=== PATIENT | female | born 1935 | race Caucasian/White ===

== ENCOUNTER 2019-07-16 07:31 | Day surgery (SDC) | payer MEDICARE, OTHER ==
[2019-07-16] MEDS: TETRACAINE HCL 0.5% OPH SOLN 0.6 ML DROPERETTE OD PRN ×3 (07:12→07:40)
[2019-07-16] MEDS: CYCLOPENTOLATE 0.2%/PHENYLEPHRINE 1% OPH SOLN 2 ML OD PRN ×3 (07:12→07:37)
[2019-07-16] MEDS: TROPICAMIDE 1% OPH SOLN 15 ML OD PRN ×3 (07:12→07:37)
[2019-07-16] MEDS: TETRACAINE HCL 0.5% OPH SOLN 4 ML OD PRN ×2 (07:12→07:38)
[2019-07-16] MEDS: BESIFLOXACIN HCL 0.6% OPH SUSP 5 ML BOTTLE OD PRN ×4 (07:12→08:24)
[~2019-07-16 07:31] MED LIST changes: -BESIFLOXACIN HCL 0.6% OPH SUSP 5 ML BOTTLE OD PRN; -CHONDR SU A NA/HYALUR INTRAOC KIT (SURGICARE) ONE; -CYCLOPENTOLATE 0.2%/PHENYLEPHRINE 1% OPH SOLN 2 ML OD PRN; -DORZOLAMIDE HCL 2%/TIMOLOL MALEAT 0.5% OPH SOLN 10 ML OD PRN; -EPINEPHRINE INJ/PF 1 MG/1 ML AMPULE ONE; -LIDOCAINE 1% INJ-PF (10 MG/ML) 30 ML SDV ONE; -TETRACAINE HCL 0.5% OPH SOLN 4 ML OD PRN; -TROPICAMIDE 1% OPH SOLN 15 ML OD PRN
[2019-07-16] MEDS ORDERED: MIDAZOLAM 2 MG/2 ML INJ ONE (07:36)
[2019-07-16] MEDS ORDERED: FENTANYL CITRATE INJ/PF 100 MCG/2 ML AMPUL ONE (07:36)
[2019-07-16] MEDS: LIDOCAINE 1% INJ-PF (10 MG/ML) 30 ML SDV ONE ×2 (08:08)
[2019-07-16] MEDS: EPINEPHRINE INJ/PF 1 MG/1 ML AMPULE ONE ×2 (08:08)
[2019-07-16] MEDS: CHONDR SU A NA/HYALUR INTRAOC KIT (SURGICARE) ONE ×2 (08:08)
[2019-07-16] MEDS: DORZOLAMIDE HCL 2%/TIMOLOL MALEAT 0.5% OPH SOLN 10 ML OD PRN ×2 (08:24)
== END 2019-07-16 09:08 | disposition home or self-care (01) ==
LOC: SC 07:31
PROVIDERS: ATTEND Ophthalmology
DX: H25.813 Combined forms of age-related cataract, bilateral (principal); I10 Essential (primary) hypertension; E78.00 Pure hypercholesterolemia, unspecified; Z79.899 Other long term (current) drug therapy; H04.123 Dry eye syndrome of bilateral lacrimal glands; H02.831 Dermatochalasis of right upper eyelid; H02.834 Dermatochalasis of left upper eyelid; Z79.82 Long term (current) use of aspirin
CPT/HCPCS: 66984; V2632; J2250; J3490 ×2; J0171; J3010

== ENCOUNTER → 2019-07-16 | Day surgery (SDC) | payer MEDICARE, OTHER ==
[~2019-07-16] MED LIST: BESIFLOXACIN HCL 0.6% OPH SUSP 5 ML BOTTLE OD PRN; BUPIVACAINE HCL 0.75% INJ/PF (7.5 MG/1 ML) 10 ML SDV OD PRN; CHONDR SU A NA/HYALUR INTRAOC KIT (SURGICARE) ONE; CYCLOPENTOLATE 0.2%/PHENYLEPHRINE 1% OPH SOLN 2 ML OD PRN; DORZOLAMIDE HCL 2%/TIMOLOL MALEAT 0.5% OPH SOLN 10 ML OD PRN; EPINEPHRINE INJ/PF 1 MG/1 ML AMPULE ONE; KETOROLAC TROMETHAMINE 0.45% 4 DROP/0.4 ML DROPERETTE OD PRN; LIDOCAINE 1% INJ-PF (10 MG/ML) 30 ML SDV ONE; LIDOCAINE 4% INJ/PF (40 MG/ML) 5 ML AMPUL OD PRN; TETRACAINE HCL 0.5% OPH SOLN 4 ML OD PRN; TROPICAMIDE 1% OPH SOLN 15 ML OD PRN
--- NOTE | 2019-07-16 12:39 | Operative Report ---
Operative Report-[facility] Operative Report: DATE OF SURGERY: 07/16/2019 PREOPERATIVE DIAGNOSIS: CATARACT, RIGHT EYE. POSTOPERATIVE DIAGNOSIS: CATARACT, RIGHT EYE. PROCEDURE PERFORMED: PHACOEMULSIFICATION WITH POSTERIOR CHAMBER INTRAOCULAR LENS, RIGHT EYE. Intraocular Lens Model : MX60E 24.0 Total Phaco Time: 5.98 CDE SURGEON: JACKY CURRY MD ANESTHESIA: TOPICAL WITH MAC. INDICATIONS FOR SURGERY: Difficulty watching TV and driving. PROCEDURE: The patient was brought to the Operating Room and placed on the operative table. Following tetracaine drops, topical anesthesia was administered. This consisted of instrument wipe pledgets soaked in a solution of 4% Xylocaine mixed with 0.75% Marcaine in a 1:2 ratio. A 2 x 1 cm pledget was placed in the superior fornix. A 1 x 1 cm pledget was placed in the inferior fornix. The eye was patched shut for 5 minutes. The patch was removed. The eye was sterilely prepped and draped in the usual manner. Lid speculum was placed in the eye. The pledgets were removed. 4-0 black silk sutures were placed around the superior and the inferior rectus muscles to be used as traction. A conjunctival peritomy was made at the 10 o'clock position. Hemostasis was obtained with bipolar cautery. A posterior limbal groove was created using a crescent knife and dissected anteriorly towards the cornea. A sharp point blade was used to create a paracentesis site at the 2 o'clock position. 0.2 cc non preserved Lidocaine was injected into the anterior chamber. A 2.4 mm keratome was used to enter the anterior chamber through the groove. Viscoelastic was injected into the anterior chamber. An anterior capsulotomy was performed using Utrata forceps in a capsulorrhexis fashion. Hydrodissection and hydrodelineation were performed. Phacoemulsification was performed in [id number] technique. Following this, the I/A unit was used to remove residual cortex. Viscoelastic was injected into the capsular bag. The Intraocular lens was placed in the capsular bag. The I/A unit was used to remove residual viscoelastic. The wound was seen to be watertight under high and low pressure, and no sutures were place d. The intraocular lens was well centered. The pressure was adjusted in the eye to normal pressure. The 4-0 black silk sutures and lid speculum were removed. The eye was shielded after Besivance and Cosopt drops were placed. The patient tolerated the procedure well and was sent to the Recovery Room in good condition.
== END ==
LOC: SC 06:54
PROVIDERS: ATTEND Ophthalmology
DX: H25.811 Combined forms of age-related cataract, right eye (principal)
CPT/HCPCS: 00142; A9270; 142; J0171; J2250; J3010; J3490; V2632

== ENCOUNTER 2019-08-13 07:57 | Day surgery (SDC) | payer MEDICARE ==
[~2019-08-13 07:57] MED LIST changes: -BUPIVACAINE HCL 0.75% INJ/PF (7.5 MG/1 ML) 10 ML SDV OD PRN; +BUPIVACAINE HCL 0.75% INJ/PF (7.5 MG/1 ML) 10 ML SDV OS PRN; +CHONDR SU A NA/HYALUR INTRAOC KIT (SURGICARE) ONE; +DORZOLAMIDE HCL 2%/TIMOLOL MALEAT 0.5% OPH SOLN 10 ML OS PRN; +EPINEPHRINE INJ/PF 1 MG/1 ML AMPULE ONE; -KETOROLAC TROMETHAMINE 0.45% 4 DROP/0.4 ML DROPERETTE OD PRN; +KETOROLAC TROMETHAMINE 0.45% 4 DROP/0.4 ML DROPERETTE OS PRN; +LIDOCAINE 1% INJ-PF (10 MG/ML) 30 ML SDV ONE; -LIDOCAINE 4% INJ/PF (40 MG/ML) 5 ML AMPUL OD PRN; +LIDOCAINE 4% INJ/PF (40 MG/ML) 5 ML AMPUL OS PRN
[2019-08-13] MEDS: BESIFLOXACIN HCL 0.6% OPH SUSP 5 ML BOTTLE OS PRN ×3 (08:57→10:01)
[2019-08-13] MEDS: TROPICAMIDE 1% OPH SOLN 15 ML OS PRN ×3 (08:57→09:17)
[2019-08-13] MEDS: CYCLOPENTOLATE 0.2%/PHENYLEPHRINE 1% OPH SOLN 2 ML OS PRN ×3 (08:57→09:17)
[2019-08-13] MEDS: TETRACAINE HCL 0.5% OPH SOLN 4 ML OS PRN ×3 (08:58→09:36)
[2019-08-13] MEDS ORDERED: MIDAZOLAM 2 MG/2 ML INJ ONE ×2 (09:16→09:49)
--- NOTE | 2019-08-13 12:34 | Operative Report ---
Operative Report-[facility] Operative Report: DATE OF SURGERY: 08/13/2019 PREOPERATIVE DIAGNOSIS: CATARACT, LEFT EYE. POSTOPERATIVE DIAGNOSIS: CATARACT, LEFT EYE. PROCEDURE PERFORMED: PHACOEMULSIFICATION WITH POSTERIOR CHAMBER INTRAOCULAR LENS, LEFT EYE. Intraocular Lens Model : MX60E 23.0 Total Phaco Time: 7.24 CDE SURGEON: JACKY CURRY MD ANESTHESIA: TOPICAL WITH MAC. INDICATIONS FOR SURGERY: Optical imbalance following cataract surgery in the right eye PROCEDURE: The patient was brought to the Operating Room and placed on the operative table. Following tetracaine drops, topical anesthesia was administered. This consisted of instrument wipe pledgets soaked in a solution of 4% Xylocaine mixed with 0.75% Marcaine in a 1:2 ratio. A 2 x 1 cm pledget was placed in the superior fornix. A 1 x 1 cm pledget was placed in the inferior fornix. The eye was patched shut for 5 minutes. The patch was removed. The eye was sterilely prepped and draped in the usual manner. Lid speculum was placed in the eye. The pledgets were removed. 4-0 black silk sutures were placed around the superior and the inferior rectus muscles to be used as traction. A conjunctival peritomy was made at the 10 o'clock position. Hemostasis was obtained with bipolar cautery. A posterior limbal groove was created using a crescent knife and dissected anteriorly towards the cornea. A sharp point blade was used to create a paracentesis site at the 2 o'clock position. 0.2 cc non preserved Lidocaine was injected into the anterior chamber. A 2.4 mm keratome was used to enter the anterior chamber through the groove. Viscoelastic was injected into the anterior chamber. An anterior capsulotomy was performed using Utrata forceps in a capsulorrhexis fashion. Hydrodissection and hydrodelineation were performed. Phacoemulsification was performed in [id number] technique. Following this, the I/A unit was used to remove residual cortex. Viscoelastic was injected into the capsular bag. The Intraocular lens was placed in the capsular bag. The I/A unit was used to remove residual viscoelastic. The wound was seen to be watertight under high and low pressure, and no sutures were placed. The intraocular lens was well centered. The pressure was adjusted in the eye to normal pressure. The 4-0 black silk sutures and lid speculum were removed. The eye was shielded after Besivance and Cosopt drops were placed. The patient tolerated the procedure well and was sent to the Recovery Room in good condition.
== END 2019-08-13 11:00 | disposition home or self-care (01) ==
LOC: SC 07:57
PROVIDERS: ATTEND Ophthalmology
DX: H25.812 Combined forms of age-related cataract, left eye (principal); Z96.1 Presence of intraocular lens; I10 Essential (primary) hypertension; Z79.899 Other long term (current) drug therapy
CPT/HCPCS: 66984; J2250; J3490 ×5; A9270; J0171; 142; V2632

== ENCOUNTER 2019-12-17 16:50 | Observation (INO) | payer MEDICARE ==
[2019-12-17] MEDS ORDERED: NORMAL SALINE 1000 ML 1,000 ML IV ONE (17:09)
[2019-12-17] MEDS ORDERED: DILTIAZEM HCL INJ 25 MG/5 ML VIAL IV ONE (17:11)
[2019-12-17] MEDS ORDERED: DILTIAZEM HCL/D5W 125 MG/125 ML RTUINJ IV PRN (17:19)
--- NOTE | 2019-12-17 17:32 | ER Document Report ---
ED General - General Chief Complaint: Irregular Pulse Stated Complaint: HEART PROBLEMS Time Seen by Provider: 12/17/19 17:08 Primary Care Provider: KELBY KOCH MD [Primary Care Provider] - Follow up as needed Information source: Patient, Relative Notes: 84-year-old female arrives by EMS with chief complaint of having nasal congestion and cough with EMS reporting RVR with A. fib; she was given 20 mg of Cardizem by EMS and arrives with a heart rate 121 on EKG at time of my exam at 1720 patient had normal sinus rhythm at 85 bpm and was no longer having a choking sensation and cough. Patient reports she is had some paroxysmal cough from time to time with rapid heartbeat and is followed by Dr. Damon in [place]. Patient arrives by EMS in no apparent distress. No other family members sick. Her who at age [address] Hidalgo in [place]. Patient used to walk [place] the [place] but for the last 6 years has been very short of breath only able to walk 10 feet before sitting down. TRAVEL OUTSIDE OF THE [place] IN LAST 30 DAYS: No - HPI Onset: Just prior to arrival Onset/Duration: Sudden Quality of pain: Pressure Severity: Mild Pain Level: 1 Associated symptoms: Nonproductive cough Exacerbated by: Denies Relieved by: Denies Similar symptoms previously: Yes Recently seen / treated by doctor: No - Dr. Koch PMD and Dr. Damon learning design specialist - Related Data Allergies/Adverse Reactions: No Known Allergies Allergy (Verified 08/13/19 09:03) Past Medical History - General Information source: Patient, Relative - son - Social History Smoking Status: Never Smoker Cigarette use (# per day): No Chew tobacco use (# tins/day): No Smoking Education Provided: No Frequency of alcohol use: None Drug Abuse: None Lives with: Family Family History: Reviewed & Not Pertinent Patient has suicidal ideation: No Patient has homicidal ideation: No - Past Medical History Cardiac Medical History: Reports: Hx Hypertension Denies: Hx Heart Attack Pulmonary Medical History: Denies: Hx Asthma Neurological Medical History: Denies: Hx Cerebrovascular Accident, Hx Seizures GI Medical History: Denies: Hx Hepatitis, Hx Hiatal Hernia, Hx Ulcer Infectious Medical History: Denies: Hx Hepatitis Past Surgical History: Denies: Hx Mastectomy, Hx Open Heart Surgery, Hx Pacemaker Review of Systems - Review of Systems Constitutional: No symptoms reported, See HPI, Malaise, Weakness EENT: No symptoms reported Cardiovascular: See HPI, Palpitations, Heart racing, Dizziness, Lightheaded Respiratory: See HPI, Cough Gastrointestinal: No symptoms reported Genitourinary: No symptoms reported Female Genitourinary: No symptoms reported Musculoskeletal: No symptoms reported Skin: No symptoms reported Hematologic/Lymphatic: No symptoms reported Neurological/Psychological: No symptoms reported Physical Exam - Vital signs Vitals: Resp 23 H 12/17/19 17:01 Interpretation: Normal - General General appearance: Appears well In distress: None - HEENT Head: Normocephalic Eyes: Normal Conjunctiva: Normal Cornea: Normal Extraocular movements intact: Yes Eyelashes: Normal Pupils: PERRL Pharynx: Normal Neck: Normal - Respiratory Respiratory status: No respiratory distress Chest status: Nontender Breath sounds: Normal Chest palpation: Normal - Cardiovascular Rhythm: Regular Heart sounds: Normal auscultation Murmur: No Friction rub: No Bethany's crunch: No - Abdominal Inspection: Normal Distension: No distension Bowel sounds: Normal Tenderness: Nontender Organomegaly: No organomegaly - Back Back: Normal - Extremities General upper extremity: Normal inspection General lower extremity: Normal inspection - Neurological Neuro grossly intact: Yes Cognition: Normal Orientation: AAOx4 [place] Coma Scale Eye Opening: Spontaneous [place] Coma Scale Verbal: Oriented [place] Coma Scale Motor: Obeys Commands Tosin Coma Scale Total: 15 Speech: Normal Cranial nerves: Normal Cerebellar coordination: Normal Motor strength normal: LUE, RUE, LLE, RLE - Psychological Associated symptoms: Normal affect - Skin Skin Temperature: Warm Skin Moisture: Dry Course - Vital Signs Vital signs: Temp Pulse Resp BP Pulse Ox 18 183/81 H 95 12/17/19 19:01 12/17/19 19:01 12/17/19 19:01 - Laboratory Result Diagrams: 12/17/19 17:04 12/17/19 17:04 Laboratory results interpreted by me: 12/17/19 12/17/19 17:04 17:04 RDW 14.3 H Calcium 10.8 H Creatine Kinase 167 H - Diagnostic Test Radiology reviewed: Reports reviewed - EKG Interpretation by Me Rate: Tachycardia Rhythm: A.Fib, Other - 121 HR with RVR Critical Care Note - Critical Care Note Total time excluding time spent on procedures (mins): 90 Comments: I discussed this case with Dr. Kaplan at 1740 and he advised admission and he will perform ultrasound in the a.m. hours. We withheld Cardizem drip because she was a normal sinus by 1730 spontaneously. This case was discussed with JAHAIRA Saldaña who advised placing the patient in telemetry bed under Dr. Mcguire Discharge - Discharge Clinical Impression: Atrial fibrillation with rapid ventricular response, Cardiomegaly Condition: Good Disposition: ADMITTED INPATIENT Admitting Provider: Shayla (Hospitalist) Unit Admitted: Telemetry Referrals: KELBY KOCH MD [Primary Care Provider] - Follow up as needed
[2019-12-17 17:35] LABS: ABSOLUTE EOSINOPHILS # (AUTO) 0.2 10^3/uL (0.0-0.6); ABSOLUTE LYMPHOCYTES (AUTO) 2.7 10^3/uL (0.5-4.7); ABSOLUTE MONOCYTES (AUTO) 0.9 10^3/uL (0.1-1.4); ABSOLUTE NEUT (AUTO) 4.6 10^3/uL (1.7-8.2); BASOPHILS % (AUTO) 0.5 % (0-2); EOSINOPHILS % (AUTO) 1.9 % (0-6); HEMATOCRIT 39.7 % (36.0-47.0); HEMOGLOBIN 13.5 g/dL (12.0-15.5); LYMPHOCYTES % (AUTO) 32.7 % (13-45); MEAN CORPUSCULAR HEMOGLOBIN 29.9 pg (27.0-33.4); MEAN CORPUSCULAR HGB CONC 33.9 g/dL (32.0-36.0); MEAN CORPUSCULAR VOLUME 88 fl (80-97); MONOCYTES % (AUTO) 10.4 % (3-13); PLATELET COUNT 259 10^3/uL (150-450); RED CELL DISTRIBUTION WIDTH 14.3 % (11.5-14.0); SEGMENTED NEUTROPHILS % (AUTO) 54.5 % (42-78); TOTAL CELLS COUNTED % (AUTO) 100 %; WHITE BLOOD COUNT 8.4 10^3/uL (4.0-10.5)
[2019-12-17 17:58] LABS: ALBUMIN 4.6 g/dL (3.5-5.0); ALKALINE PHOSPHATASE 108 U/L (38-126); ANION GAP 9 (5-19); ASPARTATE AMINO TRANSFERASE 29 U/L (14-36); BILIRUBIN,DIRECT 0.3 mg/dL (0.0-0.4); BILIRUBIN,TOTAL 0.9 mg/dL (0.2-1.3); BLOOD UREA NITROGEN 16 mg/dL (7-20); CALCIUM 10.8 mg/dL (8.4-10.2); CARBON DIOXIDE 29 mmol/L (22-30); CHLORIDE 104 mmol/L (98-107); CREATINE KINASE 167 U/L (30-135); GLUCOSE 90 mg/dL (75-110); POTASSIUM 4.1 mmol/L (3.6-5.0)
[2019-12-17 18:10] LABS: CREATINE KINASE MB 3.43 ng/mL (<4.55); TROPONIN I 0.028 ng/mL
--- NOTE | 2019-12-17 18:26 | RADIOLOGY REPORT (SQ) ---
EXAM DESCRIPTION: CHEST SINGLE VIEW COMPLETED DATE/TIME: 12/17/2019 5:16 pm REASON FOR STUDY: bed 19 difficulty breathing, elevated heat rate COMPARISON: None. NUMBER OF VIEWS: One view. TECHNIQUE: Single frontal radiographic view of the chest acquired. LIMITATIONS: None. FINDINGS: LUNGS AND PLEURA: No opacities, masses or pneumothorax. No pleural effusion. MEDIASTINUM AND HILAR STRUCTURES: No masses. Contour normal. HEART AND VASCULAR STRUCTURES: Heart enlarged without failure. Normal vasculature. BONES: Osteopenic. HARDWARE: None in the chest. OTHER: No other significant finding. IMPRESSION: HEART ENLARGED WITHOUT FAILURE. NO OTHER SIGNIFICANT RADIOGRAPHIC FINDING IN THE CHEST. TECHNICAL DOCUMENTATION: JOB ID: [id number] 2010 [employer]- All Rights Reserved Reading location - IP/workstation name: [email or web address]
--- NOTE | 2019-12-17 18:55 | EKG REPORT ---
SEVERITY:- ABNORMAL ECG - ATRIAL FIBRILLATION, V-RATE 90-167 LVH WITH SECONDARY REPOLARIZATION ABNORMALITY : Confirmed by: Freddy Barker MD 17-Dec-2019 18:54:25
[2019-12-17 19:48] LABS: APPEARANCE,URINE CLEAR; BILIRUBIN,URINE NEGATIVE (NEGATIVE); COLOR,URINE STRAW; GLUCOSE, URINE NEGATIVE (NEGATIVE); KETONES,URINE NEGATIVE (NEGATIVE); LEUKOCYTE ESTERASE,URINE NEGATIVE (NEGATIVE); NITRITE,URINE NEGATIVE (NEGATIVE); PROTEIN,URINE NEGATIVE (NEGATIVE); URINE SPECIFIC GRAVITY 1.006; UROBILINOGEN,URINE NEGATIVE mg/dL (<2.0)
[2019-12-17] MEDS ORDERED: MAG HYDROX/AL HYDROX/SIMETH SUSP 30 ML UDCUP PO PRN (20:08)
[2019-12-17] MEDS ORDERED: MAGNESIUM HYDROXIDE SUSP 30 ML UDCUP PO PRN (20:08)
[2019-12-17] MEDS ORDERED: OXYCODONE-ACETAMINOPHEN 5-325 MG TABLET PO PRN (20:08)
[2019-12-17] MEDS ORDERED: PROMETHAZINE HCL INJ 25 MG/1 ML VIAL IV PRN (20:08)
[2019-12-17] MEDS ORDERED: ACETAMINOPHEN 325 MG TABLET PO PRN (20:08)
[2019-12-17] MEDS ORDERED: ATORVASTATIN CALCIUM 10 MG TABLET PO ONE (20:19)
[2019-12-17] MEDS ORDERED: HYDRALAZINE HCL INJ/PF 20 MG/1 ML SDV IV PRN (20:20)
--- NOTE | 2019-12-17 20:29 | PDOC H&P ---
History of Present Illness Admission Date/PCP: KELBY JADE MD History of Present Illness: VIRGINIA PAYTON is a 84 year old female comes in [facility] by EMS with shortness of breath and a rapid heartbeat. The patient for the last several weeks maybe even a month she has been having a cough that would come and go, shortness of breath with exertion, and just not feeling well. Evidently EMS was called because of her shortness of breath her heart rate according to the daughter in the room was around 160. Patient was given 20 mg of Cardizem IV bolus and by the time she got back to the emergency room her heart rate did come down to approximately 121 and then later down to 85. According to the patient she is never been told she had atrial fibrillation in the past. Does have a history of hypertension. I saw the patient [facility] at 1930 hrs. her heart rate was 81 and regular oxygen saturation was 95% on room air and blood pressure was slightly elevated at 183/81. She is in no distress Patient's was seen by Dr. Hdialgo in [place]. His partner Dr. Kaplan, has agreed to see the patient in consultation tomorrow morning. Patient will be admitted to the hospital [facility], started on Toprol, if need be placed again on a Cardizem drip or was given IV bolus. She states she wants to be made a DNR. Family is in the room during the discussion, other questions were answered. Past Medical History Cardiac Medical History: Reports: Hyperlipidema, Hypertension Denies: Myocardial Infarction Pulmonary Medical History: Denies: Asthma Neurological Medical History: Denies: Seizures GI Medical History: Denies: Hepatitis, Hiatal Hernia Hematology: Denies: Anemia, Sickle Cell Disease Past Surgical History Past Surgical History: Denies: Amputation, Mastectomy, Pacemaker Social History Lives with: Family Smoking Status: Never Smoker Electronic Cigarette use?: No - Advance Directive Resuscitation Status: Do Not Resuscitate Family History Family History: Reviewed & Not Pertinent Parental Family History Reviewed: No Children Family History Reviewed: No Sibling(s) Family History Reviewed.: No Medication/Allergy Home Medications: Atorvastatin Calcium [Lipitor 10 mg Tablet] 10 mg PO QHS 07/15/19 Enalapril Maleate [Vasotec 10 mg Tablet] 20 mg PO DAILY 07/15/19 Meloxicam [Mobic] 7.5 mg PO DAILY 07/15/19 Allergies/Adverse Reactions: No Known Allergies Allergy (Verified 08/13/19 09:03) Review of Systems Constitutional: PRESENT: fatigue Cardiovascular: PRESENT: dyspnea on exertion Respiratory: PRESENT: cough Neurological: ABSENT: abnormal gait, abnormal speech, confusion, dizziness, focal weakness, syncope Psychiatric: ABSENT: anxiety, depression, homidical ideation, suicidal ideation Physical Exam Vital Signs: Temp Pulse Resp BP Pulse Ox 18 183/81 H 95 12/17/19 19:01 12/17/19 19:01 12/17/19 19:01 Intake & Output 12/16/19 12/17/19 12/18/19 06:59 06:59 06:59 Weight 84.7 kg General appearance: PRESENT: mild distress Respiratory exam: PRESENT: clear to auscultation gaston. ABSENT: rales, rhonchi, wheezes Cardiovascular exam: PRESENT: RRR. ABSENT: diastolic murmur, rubs, systolic murmur Neurological exam: PRESENT: alert, awake, oriented to person, oriented to place, oriented to time, oriented to situation, CN II-XII grossly intact. ABSENT: motor sensory deficit Psychiatric exam: PRESENT: flat affect Results Laboratory Results: 12/17/19 17:04 12/17/19 17:04 12/17/19 12/17/19 12/17/19 17:04 17:04 17:04 WBC 8.4 RBC 4.50 Hgb 13.5 Hct 39.7 MCV 88 MCH 29.9 MCHC 33.9 RDW 14.3 H Plt Count 259 Seg Neutrophils % 54.5 Sodium 142.0 Potassium 4.1 Chloride 104 Carbon Dioxide 29 Anion Gap 9 BUN 16 Creatinine 0.67 Est GFR ( Amer) > 60 Glucose 90 Calcium 10.8 H Total Bilirubin 0.9 AST 29 Alkaline Phosphatase 108 Total Protein 8.0 Albumin 4.6 TSH 2.69 Urine Color Urine Appearance Urine pH Ur Specific Hyrum Urine Protein Urine Glucose (UA) Urine Ketones Urine Blood Urine Nitrite Ur Leukocyte Esterase Urine WBC (Auto) Urine RBC (Auto) 12/17/19 18:50 WBC RBC Hgb Hct MCV MCH MCHC RDW Plt Count Seg Neutrophils % Sodium Potassium Chloride Carbon Dioxide Anion Gap BUN Creatinine Est GFR ( Amer) Glucose Calcium Total Bilirubin AST Alkaline Phosphatase Total Protein Albumin TSH Urine Color STRAW Urine Appearance CLEAR Urine pH 8.0 Ur Specific Hyrum 1.006 Urine Protein NEGATIVE Urine Glucose (UA) NEGATIVE Urine Ketones NEGATIVE Urine Blood SMALL H Urine Nitrite NEGATIVE Ur Leukocyte Esterase NEGATIVE Urine WBC (Auto) 2 Urine RBC (Auto) 2 12/17/19 12/17/19 17:04 17:04 Creatine Kinase 167 H CK-MB (CK-2) 3.43 Troponin I 0.028 Impressions: Chest X-Ray 12/17/19 16:53 IMPRESSION: HEART ENLARGED WITHOUT FAILURE. NO OTHER SIGNIFICANT RADIOGRAPHIC FINDING IN THE CHEST. Assessment and Plan - Diagnosis (1) Hypertension Is this a current diagnosis for this admission?: Yes (2) Shortness of breath Is this a current diagnosis for this admission?: Yes (3) Atrial fibrillation with rapid ventricular response Is this a current diagnosis for this admission?: Yes (4) Cardiomegaly Is this a current diagnosis for this admission?: Yes - Plan Summary Summary: [facility]. Blood pressure will be controlled. Will be started on a beta-mary. She is already on a statin. Serial enzymes will be monitored. If need be patient will be started on either a Cardizem drip or given an IV bolus. Patient will be put on telemetry. Patient is medically stable to move to the floor. Patient will be seen by cardiology in the morning - Time Time Spent with patient: 35 or more minutes
[2019-12-17] MEDS: ENOXAPARIN SODIUM INJ 40 MG/0.4 ML DISP.SYRIN SUBCUT SCH (21:07)
[2019-12-17] MEDS: METOPROLOL SUCCINATE 25 MG TAB.SR.24H PO SCH (21:07)
[2019-12-17 21:30] LABS: INTERNATIONAL RATION (INR) 0.99; PROTHROMBIN TIME 13.1 SEC (11.4-15.4)
[2019-12-17 21:57] LABS: CREATINE KINASE MB 2.81 ng/mL (<4.55)
[2019-12-17 22:15] LABS: TROPONIN I 0.037 ng/mL
[2019-12-18 03:13] LABS: ABSOLUTE EOSINOPHILS # (AUTO) 0.1 10^3/uL (0.0-0.6); ABSOLUTE LYMPHOCYTES (AUTO) 2.8 10^3/uL (0.5-4.7); ABSOLUTE MONOCYTES (AUTO) 0.7 10^3/uL (0.1-1.4); ABSOLUTE NEUT (AUTO) 3.6 10^3/uL (1.7-8.2); BASOPHILS % (AUTO) 0.6 % (0-2); EOSINOPHILS % (AUTO) 1.7 % (0-6); HEMATOCRIT 36.3 % (36.0-47.0); HEMOGLOBIN 12.4 g/dL (12.0-15.5); LYMPHOCYTES % (AUTO) 38.1 % (13-45); MEAN CORPUSCULAR HEMOGLOBIN 30.1 pg (27.0-33.4); MEAN CORPUSCULAR HGB CONC 34.1 g/dL (32.0-36.0); MEAN CORPUSCULAR VOLUME 88 fl (80-97); MONOCYTES % (AUTO) 9.9 % (3-13); PLATELET COUNT 233 10^3/uL (150-450); RED BLOOD COUNT 4.11 10^6/uL (3.72-5.28); RED CELL DISTRIBUTION WIDTH 14.3 % (11.5-14.0); SEGMENTED NEUTROPHILS % (AUTO) 49.7 % (42-78); TOTAL CELLS COUNTED % (AUTO) 100 %; WHITE BLOOD COUNT 7.2 10^3/uL (4.0-10.5)
[2019-12-18 03:23] LABS: ANION GAP 7 (5-19); BLOOD UREA NITROGEN 16 mg/dL (7-20); CALCIUM 9.8 mg/dL (8.4-10.2); CARBON DIOXIDE 25 mmol/L (22-30); CHLORIDE 109 mmol/L (98-107); CHOLESTEROL 160.42 mg/dL (0-200); GLUCOSE 98 mg/dL (75-110); TRIGLYCERIDES 227 mg/dL (<150)
[2019-12-18 03:33] LABS: DIRECT LDL 92 mg/dL (<100)
[2019-12-18 03:34] LABS: VLDL CHOLESTEROL 45.4 mg/dL (10-31)
[2019-12-18 03:38] LABS: CREATINE KINASE MB 2.77 ng/mL (<4.55); TROPONIN I 0.038 ng/mL
--- NOTE | 2019-12-18 07:27 | EKG REPORT ---
SEVERITY:- ABNORMAL ECG - SINUS RHYTHM ATRIAL PREMATURE COMPLEX PROBABLE LVH WITH SECONDARY REPOL ABNRM : Confirmed by: Freddy Barker MD 18-Dec-2019 07:26:49
[2019-12-18] MEDS: METOPROLOL SUCCINATE 25 MG TAB.SR.24H PO SCH ×2 (10:06→17:16)
[2019-12-18] MEDS: ENOXAPARIN SODIUM INJ 40 MG/0.4 ML DISP.SYRIN SUBCUT SCH (10:06)
[2019-12-18] MEDS: DOCUSATE SODIUM 100 MG CAPSULE PO SCH (10:07)
[2019-12-18 10:34] LABS: TROPONIN I 0.028 ng/mL
--- NOTE | 2019-12-18 11:31 | PDOC PROGRESS REPORT ---
Subjective Progress Note for:: 12/18/19 Subjective:: The patient was seen by Dr. Kaplan earlier. She is resting in bed. She has a very flat affect with a blank stare on her face. Multiple family members at the bedside. Reason For Visit: NEW ONSET AFIB,SHORTNESS OF BREATH,HYPERTENSION Physical Exam Vital Signs: Temp Pulse Resp BP Pulse Ox 97.9 F 63 14 160/60 H 95 12/18/19 07:43 12/18/19 07:43 12/18/19 07:43 12/18/19 07:43 12/18/19 07:43 Intake & Output 12/17/19 12/18/19 12/19/19 06:59 06:59 06:59 Intake Total 1220 Balance 1220 Weight 83.4 kg General appearance: PRESENT: no acute distress, cooperative, well-developed Head exam: PRESENT: atraumatic, normocephalic Eye exam: PRESENT: conjunctiva pink. ABSENT: scleral icterus Ear exam: PRESENT: normal external ear exam. ABSENT: bleeding, drainage Mouth exam: PRESENT: moist, tongue midline Respiratory exam: PRESENT: clear to auscultation gaston, symmetrical, unlabored. ABSENT: accessory muscle use, prolonged expiratory phas, rales, rhonchi, tachypnea, wheezes Cardiovascular exam: PRESENT: RRR, +S1, +S2 GI/Abdominal exam: PRESENT: normal bowel sounds, soft. ABSENT: distended, guarding, mass, tenderness Rectal exam: PRESENT: deferred Gentrourinary exam: ABSENT: indwelling catheter Musculoskeletal exam: PRESENT: ambulatory, normal inspection Neurological exam: PRESENT: alert, awake, oriented to person, oriented to place, oriented to time, oriented to situation, CN II-XII grossly intact Psychiatric exam: PRESENT: flat affect. ABSENT: agitated, anxious Focused psych exam: ABSENT: delusional, restlessness Skin exam: PRESENT: dry, normal color, warm. ABSENT: rash Results Laboratory Results: 12/18/19 02:57 12/18/19 02:57 12/17/19 12/17/19 12/17/19 17:04 17:04 17:04 WBC 8.4 RBC 4.50 Hgb 13.5 Hct 39.7 MCV 88 MCH 29.9 MCHC 33.9 RDW 14.3 H Plt Count 259 Seg Neutrophils % 54.5 Sodium 142.0 Potassium 4.1 Chloride 104 Carbon Dioxide 29 Anion Gap 9 BUN 16 Creatinine 0.67 Est GFR ( Amer) > 60 Glucose 90 Calcium 10.8 H Magnesium Total Bilirubin 0.9 AST 29 Alkaline Phosphatase 108 Total Protein 8.0 Albumin 4.6 Triglycerides Cholesterol LDL Cholesterol Direct VLDL Cholesterol HDL Cholesterol TSH 2.69 Urine Color Urine Appearance Urine pH Ur Specific [place] Urine Protein Urine Glucose (UA) Urine Ketones Urine Blood Urine Nitrite Ur Leukocyte Esterase Urine WBC (Auto) Urine RBC (Auto) 12/17/19 12/18/19 12/18/19 18:50 02:57 02:57 WBC 7.2 RBC 4.11 Hgb 12.4 Hct 36.3 MCV 88 MCH 30.1 MCHC 34.1 RDW 14.3 H Plt Count 233 Seg Neutrophils % 49.7 Sodium 140.7 Potassium 4.0 Chloride 109 H Carbon Dioxide 25 Anion Gap 7 BUN 16 Creatinine 0.58 Est GFR ( Amer) > 60 Glucose 98 Calcium 9.8 Magnesium 2.0 Total Bilirubin AST Alkaline Phosphatase Total Protein Albumin Triglycerides 227 H Cholesterol 160.42 LDL Cholesterol Direct 92 VLDL Cholesterol 45.4 H HDL Cholesterol 45 TSH Urine Color STRAW Urine Appearance CLEAR Urine pH 8.0 Ur Specific [place] 1.006 Urine Protein NEGATIVE Urine Glucose (UA) NEGATIVE Urine Ketones NEGATIVE Urine Blood SMALL H Urine Nitrite NEGATIVE Ur Leukocyte Esterase NEGATIVE Urine WBC (Auto) 2 Urine RBC (Auto) 2 12/17/19 12/17/19 12/17/19 17:04 17:04 21:08 Creatine Kinase 167 H CK-MB (CK-2) 3.43 2.81 Troponin I 0.028 0.037 NT-Pro-B Natriuret Pep 695 H 12/18/19 12/18/19 02:57 09:47 Creatine Kinase CK-MB (CK-2) 2.77 2.00 Troponin I 0.038 0.028 NT-Pro-B Natriuret Pep Impressions: Chest X-Ray 12/17/19 16:53 IMPRESSION: HEART ENLARGED WITHOUT FAILURE. NO OTHER SIGNIFICANT RADIOGRAPHIC FINDING IN THE CHEST. Assessment and Plan - Diagnosis (1) New onset atrial fibrillation Is this a current diagnosis for this admission?: Yes (2) Atrial fibrillation with rapid ventricular response Is this a current diagnosis for this admission?: Yes (3) Hypertension Qualifiers: Hypertension type: essential hypertension Qualified Code(s): I10 - Essential (primary) hypertension Is this a current diagnosis for this admission?: Yes (4) Shortness of breath Is this a current diagnosis for this admission?: Yes - Plan Summary Summary: Patient will be admitted to the hospital [facility] for close observation. Blood pressure will be controlled. Will be started on a beta-mary. She is already on a statin. Serial enzymes will be monitored. If need be patient will be started on either a Cardizem drip or given an IV bolus. Patient will be put on telemetry. Patient is medically stable to move to the floor. Patient will be seen by cardiology in the morning 12/18/2019 The patient was seen earlier by Dr. Kaplan, manager basketball. Even though the patient converted back into sinus rhythm it could be paroxysmal. He recommended anticoagulation but the family was undecided. During my discussion they did asked me to speak to the patient's son by phone. A discussion was held about the benefits and risks of anticoagulation. I tried to explain to him the benefits of the newer medications as far as increased stability with less adverse effects from other medications. The lack of need for testing and large fluctuations that can occur with warfarin therapy. He was very concerned because a relative of his was on Xarelto and evidently had blood clots. Clearly it is unknown how compliant the patient was or any other factors. I thanked him for his input. I then had a discussion with the family that was present. The daughter at the bedside is the one primarily responsible for her parents care locally. After about 25 minutes I expressed the need for them to make a decision or continue to talk about it and let the nurse know. They asked for my suggestion. I stated that we should utilize 1 of the newer medications for anticoagulation. The agreement was not to use Xarelto based on the patient's son's concerns and we will use Eliquis instead. We will continue the low-dose beta-mary and the patient will likely be able to discharged home tomorrow. - Time Time Spent with patient: 25-34 minutes Medications reviewed and adjusted accordingly: Yes Anticipated discharge: Home
[2019-12-18] MEDS ORDERED: APIXABAN 5 MG TABLET PO ONE (12:15)
--- NOTE | 2019-12-18 13:12 | PDOC CONSULTATION ---
Consultation Consult Date: 12/18/19 Attending physician:: LIZANDRO GALVEZ Provider Consulted: SANDRA GE Consult reason:: Atrial fibrillation History of Present Illness Admission Date/PCP: 12/17/19 20:26 KELBY JADE MD Patient complains of: Palpitations History of Present Illness: VIRGINIA PAYTON I is a 84 year old female With systemic hypertension who presented with palpitations and was found to be in atrial fibrillation with rapid ventricular response. She converted to sinus rhythm without intervention. She does not report recent infection. Presently she is comfortable and maintaining sinus rhythm. She does report some complaint suggestive of dyspnea and effort intolerance which are new findings for her. Presently she does not smoke cigarettes. No familial illnesses reported. Past Medical History Cardiac Medical History: Reports: Hyperlipidema, Hypertension Denies: Myocardial Infarction Pulmonary Medical History: Denies: Asthma Neurological Medical History: Denies: Seizures GI Medical History: Denies: Hepatitis, Hiatal Hernia Hematology: Denies: Anemia, Sickle Cell Disease Past Surgical History Past Surgical History: Denies: Amputation, Mastectomy, Pacemaker Social History Lives with: Family Smoking Status: Never Smoker Electronic Cigarette use?: No Frequency of Alcohol Use: None Hx Recreational Drug Use: No Hx Prescription Drug Abuse: No - Advance Directive Resuscitation Status: Do Not Resuscitate Family History Family History: Reviewed & Not Pertinent Parental Family History Reviewed: No - No familial illnesses Children Family History Reviewed: NA Sibling(s) Family History Reviewed.: NA Medication/Allergy Home Medications: Atorvastatin Calcium [Lipitor 10 mg Tablet] 10 mg PO QHS 07/15/19 Enalapril Maleate [Vasotec 10 mg Tablet] 20 mg PO DAILY 07/15/19 Meloxicam [Mobic] 7.5 mg PO DAILY 07/15/19 Aspirin [Ecotrin 81 mg EC Tablet] 81 mg PO DAILY 12/18/19 Allergies/Adverse Reactions: No Known Allergies Allergy (Verified 08/13/19 09:03) Review of Systems Constitutional: PRESENT: as per HPI, fatigue Cardiovascular: PRESENT: dyspnea on exertion, palpitations Physical Exam Vital Signs: Temp Pulse Resp BP Pulse Ox 97.9 F 63 14 160/60 H 95 12/18/19 07:43 12/18/19 07:43 12/18/19 07:43 12/18/19 07:43 12/18/19 07:43 Intake & Output 12/17/19 12/18/19 12/19/19 06:59 06:59 06:59 Intake Total 1220 Balance 1220 Weight 83.4 kg General appearance: PRESENT: cooperative, obese, well-developed Head exam: PRESENT: atraumatic, normocephalic Eye exam: PRESENT: conjunctiva pink, EOMI Mouth exam: PRESENT: moist Respiratory exam: PRESENT: clear to auscultation [place], symmetrical, unlabored Cardiovascular exam: PRESENT: RRR, +S1, +S2 Pulses: PRESENT: normal radial pulses GI/Abdominal exam: PRESENT: soft Rectal exam: PRESENT: deferred Musculoskeletal exam: PRESENT: normal inspection Neurological exam: PRESENT: alert, awake, oriented to person, oriented to place, oriented to time, oriented to situation Psychiatric exam: PRESENT: appropriate affect Skin exam: PRESENT: dry, intact, normal color Results Laboratory Results: 12/18/19 02:57 12/18/19 02:57 12/17/19 12/17/19 12/17/19 17:04 17:04 17:04 WBC 8.4 RBC 4.50 Hgb 13.5 Hct 39.7 MCV 88 MCH 29.9 MCHC 33.9 RDW 14.3 H Plt Count 259 Seg Neutrophils % 54.5 Sodium 142.0 Potassium 4.1 Chloride 104 Carbon Dioxide 29 Anion Gap 9 BUN 16 Creatinine 0.67 Est GFR ( Amer) > 60 Glucose 90 Calcium 10.8 H Magnesium Total Bilirubin 0.9 AST 29 Alkaline Phosphatase 108 Total Protein 8.0 Albumin 4.6 Triglycerides Cholesterol LDL Cholesterol Direct VLDL Cholesterol HDL Cholesterol TSH 2.69 Urine Color Urine Appearance Urine pH Ur Specific [place] Urine Protein Urine Glucose (UA) Urine Ketones Urine Blood Urine Nitrite Ur Leukocyte Esterase Urine WBC (Auto) Urine RBC (Auto) 12/17/19 12/18/19 12/18/19 18:50 02:57 02:57 WBC 7.2 RBC 4.11 Hgb 12.4 Hct 36.3 MCV 88 MCH 30.1 MCHC 34.1 RDW 14.3 H Plt Count 233 Seg Neutrophils % 49.7 Sodium 140.7 Potassium 4.0 Chloride 109 H Carbon Dioxide 25 Anion Gap 7 BUN 16 Creatinine 0.58 Est GFR ( Amer) > 60 Glucose 98 Calcium 9.8 Magnesium 2.0 Total Bilirubin AST Alkaline Phosphatase Total Protein Albumin Triglycerides 227 H Cholesterol 160.42 LDL Cholesterol Direct 92 VLDL Cholesterol 45.4 H HDL Cholesterol 45 TSH Urine Color STRAW Urine Appearance CLEAR Urine pH 8.0 Ur Specific [place] 1.006 Urine Protein NEGATIVE Urine Glucose (UA) NEGATIVE Urine Ketones NEGATIVE Urine Blood SMALL H Urine Nitrite NEGATIVE Ur Leukocyte Esterase NEGATIVE Urine WBC (Auto) 2 Urine RBC (Auto) 2 12/17/19 12/17/19 12/17/19 17:04 17:04 21:08 Creatine Kinase 167 H CK-MB (CK-2) 3.43 2.81 Troponin I 0.028 0.037 NT-Pro-B Natriuret Pep 695 H 12/18/19 02:57 Creatine Kinase CK-MB (CK-2) 2.77 Troponin I 0.038 NT-Pro-B Natriuret Pep EKG Comments: Twelve-lead EKG 12/18/2019 sinus rhythm PAC, 65 bpm, left ventricular hypertrophy with repolarization abnormality Twelve-lead EKG 12/17/2019 Atrial fibrillation with rapid ventricular response 121 bpm, left ventricular hypertrophy with repolarization abnormality. Telemetry presently shows sinus rhythm. Mildly elevated but indeterminate troponins Impressions: Chest X-Ray 12/17/19 16:53 IMPRESSION: HEART ENLARGED WITHOUT FAILURE. NO OTHER SIGNIFICANT RADIOGRAPHIC FINDING IN THE CHEST. Assessment & Plan - Diagnosis (1) Atrial fibrillation with rapid ventricular response Is this a current diagnosis for this admission?: Yes Plan: Patient converted to sinus rhythm without intervention She may be having paroxysmal episodes of atrial fibrillation however she reports this as no finding. It may be reasonable to pursue systemic anticoagulation based on age, sex and the fact that she has systemic hypertension. Agree with systemic anticoagulation Alternately we can pursue outpatient ambulatory cardiac monitoring to see if she has continued episodes of atrial fibrillation to determine this. Would recommend low-dose calcium mary or beta-mary to suppress triggers for atrial fibrillation. (2) Hypertension Is this a current diagnosis for this admission?: Yes Plan: Watch blood pressure Patient has been started on diltiazem. (3) Shortness of breath Is this a current diagnosis for this admission?: Yes Plan: This is a new finding for this patient. Symptoms suggestive of congestive heart failure. Will go out and obtain transthoracic echocardiogram to evaluate heart structure and function and to exclude valvular heart disease as cause of symptoms.
--- NOTE | 2019-12-18 17:09 | XCELERA REPORT ---
[address] [address] Transthoracic Echocardiogram Report Name: VIRGINIA PAYTON I Age: 84 yrs Gender: Female : 1935 Patient Status: Inpatient Patient Location: [address] [place] [address] Study Date: 12/18/2019 01:56 PM History: Paroxysmal atrial fibrillation Procedure: A complete two-dimensional transthoracic echocardiogram was performed (2D, M-mode, spectral and color flow Doppler). The study was technically difficult with many images being suboptimal in quality. Reason For Study: New onset atrial fibrillation Previous Evaluation: No previous studies were available. History: Shortness of breath. Paroxysmal atrial fibrillation. Ordering Physician: LIZANDRO GALVEZ Performed By: Chastity Mccoy Interpretation Summary Left ventricular systolic function is normal. The Ejection Fraction estimate is 55-60% The right ventricle is normal in size and function. There is a trace amount of mitral regurgitation There is a trace amount of aortic regurgitation There is a trace amount of tricuspid regurgitation There is mild pulmonary hypertension by echo Minimal pericardial effusion. MMode/2D Measurements & Calculations RVDd: 2.5 cm LVIDd: 4.1 cm FS: 40.8 % Ao root diam: 2.5 cm IVSd: 1.2 cm LVIDs: 2.4 cm EDV(Teich): 75.8 ml LVPWd: 0.93 cm ESV(Teich): 21.2 ml Ao root area: 4.8 cm2 EF(Teich): 72.1 % Doppler Measurements & Calculations MV E max kalli: MV dec slope: Ao V2 max: LV V1 max P.4 cm/sec 113.9 cm/sec 1.6 mmHg MV A max kalli: 448.3 cm/sec2 Ao max P.2 mmHgLV V1 max: 49.7 cm/sec MV dec time: 0.22 sec 64.2 cm/sec MV E/A: 1.9 PA V2 max: PI end-d kalli: TR max kalli: 98.2 cm/sec 162.7 cm/sec 297.5 cm/sec PA max P.9 mmHg PI max kalli: TR max P.4 cm/sec 35.5 mmHg PI max P.1 mmHg PI dec slope: 182.6 cm/sec2 Left Ventricle The left ventricle is grossly normal size. There is mild concentric left ventricular hypertrophy. Left ventricular systolic function is normal. The Ejection Fraction estimate is 55-60%. Doppler measurements suggest pseudonormalized left ventricular relaxation, which is associated with grade II/IV or mild to moderate diastolic dysfunction. Regional wall motion abnormalities cannot be excluded due to limited visualization. Right Ventricle The right ventricle is normal in size and function. Atria The right atrium is normal. The left atrium is moderately dilated. Mitral Valve The mitral valve leaflets are sclerotic, but show no functional abnormalities. There is no mitral valve stenosis. There is a trace amount of mitral regurgitation. Aortic Valve The aortic valve is sclerotic, but shows no functional abnormality. The aortic valve is normal in structure and function. The aortic valve is trileaflet. The aortic valve opens well. There is no aortic valve stenosis. There is a trace amount of aortic regurgitation. Tricuspid Valve The tricuspid valve is normal in structure and function. There is a trace amount of tricuspid regurgitation. There is mild pulmonary hypertension by echo. Right ventricular systolic pressure is estimated to be elevated at 40- 50mmHg. Pulmonic Valve The pulmonic valve is normal in structure and function. There is a moderate amount of pulmonic regurgitation. Great Vessels The aortic root is normal size. The inferior vena cava appeared small and collapsed with respiration (RAP 0-5 mmHg). Effusions Minimal pericardial effusion. : LIZANDRO GALVEZ Anil
[2019-12-18] MEDS: APIXABAN 5 MG TABLET PO SCH (17:16)
[2019-12-19] MEDS: METOPROLOL SUCCINATE 25 MG TAB.SR.24H PO SCH (09:20)
[2019-12-19] MEDS: APIXABAN 5 MG TABLET PO SCH (09:20)
[2019-12-19] MEDS: DOCUSATE SODIUM 100 MG CAPSULE PO SCH (09:20)
--- NOTE | 2019-12-19 10:50 | PDOC DISCHARGE SUMMARY ---
Impression - Admit/DC Date/PCP Admission Date/Primary Care Provider: 12/17/19 20:26 KELBY JADE MD Discharge Date: 12/19/19 - Discharge Diagnosis (1) New onset atrial fibrillation Is this a current diagnosis for this admission?: Yes (2) Atrial fibrillation with rapid ventricular response Is this a current diagnosis for this admission?: Yes (3) Hypertension Is this a current diagnosis for this admission?: Yes (4) Shortness of breath Is this a current diagnosis for this admission?: Yes - Assessment Summary: Patient will be admitted to the [facility] for close observation. Blood pressure will be controlled. Will be started on a beta-mary. She is already on a statin. Serial enzymes will be monitored. If need be patient will be started on either a Cardizem drip or given an IV bolus. Patient will be put on telemetry. Patient is medically stable to move to the floor. Patient will be seen by cardiology in the morning 12/18/2019 The patient was seen earlier by Dr. Kaplan, blindmaker. Even though the patient converted back into sinus rhythm it could be paroxysmal. He recommended anticoagulation but the family was undecided. During my discussion they did asked me to speak to the patient's son by phone. A discussion was held about the benefits and risks of anticoagulation. I tried to explain to him the benefits of the newer medications as far as increased stability with less adverse effects from other medications. The lack of need for testing and large fluctuations that can occur with warfarin therapy. He was very concerned because a relative of his was on Xarelto and evidently had blood clots. Clearly it is unknown how compliant the patient was or any other factors. I thanked him for his input. I then had a discussion with the family that was present. The daughter at the bedside is the one primarily responsible for her parents care locally. After about 25 minutes I expressed the need for them to make a decision or continue to talk about it and let the nurse know. They asked for my suggestion. I stated that we should utilize 1 of the newer medications for anticoagulation. The agreement was not to use Xarelto based on the patient's son's concerns and we will use Eliquis instead. We will continue the low-dose beta-mary and the patient will likely be able to discharged home tomorrow. 12/19/2019 The patient is tolerating the Eliquis. As discussed yesterday the patient is stable for discharge to home. The family is in agreement. She will follow-up with cardiology as an outpatient. They will use Dr. Hidalgo as he is closer to their home and several other relatives see him as well. - Additional Information Resuscitation Status: Do Not Resuscitate Discharge Diet: Cardiac Discharge Activity: Activity As Tolerated, Slowly Increase Activity Referrals: Rocky Santiago MD [Other] - 12/30/19 3:00 pm KELBY JADE MD [Primary Care Provider] - 12/24/19 10:00 am Prescriptions: Apixaban [Eliquis 5 mg Tablet] 5 mg PO BID 15 Days #30 tablet Metoprolol Succinate [Toprol Xl 25 mg Tab.sr] 25 mg PO BID 15 Days #30 tab.sr.24h Home Medications: Atorvastatin Calcium [Lipitor 10 mg Tablet] 10 mg PO QHS 07/15/19 Enalapril Maleate [Vasotec 10 mg Tablet] 20 mg PO DAILY 07/15/19 Aspirin [Ecotrin 81 mg EC Tablet] 81 mg PO DAILY 12/18/19 Apixaban [Eliquis 5 mg Tablet] 5 mg PO BID 15 Days #30 tablet 12/19/19 Docusate Sodium [Colace 100 mg Capsule] 100 mg PO DAILY capsule 12/19/19 Metoprolol Succinate [Toprol Xl 25 mg Tab.sr] 25 mg PO BID 15 Days #30 tab.sr.24h 12/19/19 History of Present Illiness History of Present Illness: VIRGINIA PAYTON I is a 84 year old female comes in [facility] by EMS with shortness of breath and a rapid heartbeat. The patient for the last several weeks maybe even a month she has been having a cough that would come and go, shortness of breath with exertion, and just not feeling well. Evidently EMS was called because of her shortness of breath her heart rate according to the daughter in the room was around 160. Patient was given 20 mg of Cardizem IV bolus and by the time she got back to the emergency room her heart rate did come down to approximately 121 and then later down to 85. According to the patient she is never been told she had atrial fibrillation in the past. Does have a history of hypertension. I saw the patient [facility] at 1930 hrs. her heart rate was 81 and regular oxygen saturation was 95% on room air and blood pressure was slightly elevated at 183/81. She is in no distress Patient's was seen by Dr. Hidalgo in [place]. His partner Dr. Kaplan, has agreed to see the patient in consultation tomorrow morning. Patient will be admitted to the hospital tonight, started on Toprol, if need be placed again on a Cardizem drip or was given IV bolus. Hospital Course Hospital Course: Unremarkable. She converted to sinus rhythm spontaneously and was started on anticoagulation. Rate is well controlled on the current regimen. Physical Exam Vital Signs: Temp Pulse Resp BP Pulse Ox 98.1 F 55 L 16 164/56 H 94 12/19/19 07:19 12/19/19 07:19 12/19/19 07:19 12/19/19 07:19 12/19/19 07:19 Intake & Output 12/18/19 12/19/19 12/20/19 06:59 06:59 06:59 Intake Total 1220 830 Balance 1220 830 Weight 83.4 kg 86.1 kg General appearance: PRESENT: no acute distress, cooperative Head exam: PRESENT: atraumatic, normocephalic Respiratory exam: PRESENT: clear to auscultation [place], symmetrical, unlabored. ABSENT: retraction, tachypnea, wheezes Cardiovascular exam: PRESENT: RRR, +S1, +S2 GI/Abdominal exam: PRESENT: normal bowel sounds, soft. ABSENT: distended, guarding, tenderness Rectal exam: PRESENT: deferred Gentrourinary exam: ABSENT: indwelling catheter Extremities exam: PRESENT: full ROM. ABSENT: pedal edema Musculoskeletal exam: PRESENT: ambulatory, normal inspection. ABSENT: deformity Neurological exam: PRESENT: alert, awake, oriented to person, oriented to place, oriented to time, oriented to situation, CN II-XII grossly intact Psychiatric exam: PRESENT: flat affect. ABSENT: agitated, anxious Focused psych exam: ABSENT: catatonic, restlessness Skin exam: PRESENT: dry, normal color, warm. ABSENT: rash Results Laboratory Results: WBC 7.2 10^3/uL (4.0-10.5) 12/18/19 02:57 RBC 4.11 10^6/uL (3.72-5.28) 12/18/19 02:57 Hgb 12.4 g/dL (12.0-15.5) 12/18/19 02:57 Hct 36.3 % (36.0-47.0) 12/18/19 02:57 MCV 88 fl (80-97) 12/18/19 02:57 MCH 30.1 pg (27.0-33.4) 12/18/19 02:57 MCHC 34.1 g/dL (32.0-36.0) 12/18/19 02:57 RDW 14.3 % (11.5-14.0) H 12/18/19 02:57 Plt Count 233 10^3/uL (150-450) 12/18/19 02:57 Lymph % (Auto) 38.1 % (13-45) 12/18/19 02:57 [place] % (Auto) 9.9 % (3-13) 12/18/19 02:57 Eos % (Auto) 1.7 % (0-6) 12/18/19 02:57 Baso % (Auto) 0.6 % (0-2) 12/18/19 02:57 Absolute Neuts (auto) 3.6 10^3/uL (1.7-8.2) 12/18/19 02:57 Absolute Lymphs (auto) 2.8 10^3/uL (0.5-4.7) 12/18/19 02:57 Absolute Monos (auto) 0.7 10^3/uL (0.1-1.4) 12/18/19 02:57 Absolute Eos (auto) 0.1 10^3/uL (0.0-0.6) 12/18/19 02:57 Absolute Basos (auto) 0.0 10^3/uL (0.0-0.2) 12/18/19 02:57 Seg Neutrophils % 49.7 % (42-78) 12/18/19 02:57 PT 13.1 SEC (11.4-15.4) 12/17/19 21:08 INR 0.99 12/17/19 21:08 APTT 32.2 SEC (23.5-35.8) 12/18/19 02:57 Sodium 140.7 mmol/L (137-145) 12/18/19 02:57 Potassium 4.0 mmol/L (3.6-5.0) 12/18/19 02:57 Chloride 109 mmol/L (98-107) H 12/18/19 02:57 Carbon Dioxide 25 mmol/L (22-30) 12/18/19 02:57 Anion Gap 7 (5-19) 12/18/19 02:57 BUN 16 mg/dL (7-20) 12/18/19 02:57 Creatinine 0.58 mg/dL (0.52-1.25) 12/18/19 02:57 Est GFR ( Amer) > 60 (>60) 12/18/19 02:57 Est GFR (MDRD) Non-Af > 60 (>60) 12/18/19 02:57 Glucose 98 mg/dL (75-110) 12/18/19 02:57 Calcium 9.8 mg/dL (8.4-10.2) 12/18/19 02:57 Magnesium 2.0 mg/dL (1.6-2.3) 12/18/19 02:57 Total Bilirubin 0.9 mg/dL (0.2-1.3) 12/17/19 17:04 Direct Bilirubin 0.3 mg/dL (0.0-0.4) 12/17/19 17:04 Neonat Total Bilirubin Not Reportable 12/17/19 17:04 Neonat Direct Bilirubin Not Reportable 12/17/19 17:04 Neonat Indirect Bili Not Reportable 12/17/19 17:04 AST 29 U/L (14-36) 12/17/19 17:04 ALT 19 U/L (<35) 12/17/19 17:04 Alkaline Phosphatase 108 U/L (38-126) 12/17/19 17:04 Creatine Kinase 167 U/L (30-135) H 12/17/19 17:04 CK-MB (CK-2) 2.00 ng/mL (<4.55) 12/18/19 09:47 Troponin I 0.028 ng/mL 12/18/19 09:47 NT-Pro-B Natriuret Pep 695 pg/mL (<450) H 12/17/19 21:08 Total Protein 8.0 g/dL (6.3-8.2) 12/17/19 17:04 Albumin 4.6 g/dL (3.5-5.0) 12/17/19 17:04 Triglycerides 227 mg/dL (<150) H 12/18/19 02:57 Cholesterol 160.42 mg/dL (0-200) 12/18/19 02:57 LDL Cholesterol Direct 92 mg/dL (<100) 12/18/19 02:57 VLDL Cholesterol 45.4 mg/dL (10-31) H 12/18/19 02:57 HDL Cholesterol 45 mg/dL (>40) 12/18/19 02:57 TSH 2.69 uIU/mL (0.47-4.68) 12/17/19 17:04 Urine Color STRAW 12/17/19 18:50 Urine Appearance CLEAR 12/17/19 18:50 Urine pH 8.0 (5.0-9.0) 12/17/19 18:50 Ur Specific [place] 1.006 12/17/19 18:50 Urine Protein NEGATIVE mg/dL (NEGATIVE) 12/17/19 18:50 Urine Glucose (UA) NEGATIVE mg/dL (NEGATIVE) 12/17/19 18:50 Urine Ketones NEGATIVE mg/dL (NEGATIVE) 12/17/19 18:50 Urine Blood SMALL (NEGATIVE) H 12/17/19 18:50 Urine Nitrite NEGATIVE (NEGATIVE) 12/17/19 18:50 Urine Bilirubin NEGATIVE (NEGATIVE) 12/17/19 18:50 Urine Urobilinogen NEGATIVE mg/dL (<2.0) 12/17/19 18:50 Ur Leukocyte Esterase NEGATIVE (NEGATIVE) 12/17/19 18:50 Urine WBC (Auto) 2 /HPF 12/17/19 18:50 Urine RBC (Auto) 2 /HPF 12/17/19 18:50 Squamous Epi Cells Auto <1 /HPF 12/17/19 18:50 Urine Mucus (Auto) RARE /LPF 12/17/19 18:50 Urine Ascorbic Acid NEGATIVE (NEGATIVE) 12/17/19 18:50 12/17/19 12/17/19 12/18/19 17:04 21:08 02:57 CK-MB (CK-2) 3.43 2.81 2.77 Troponin I 0.028 0.037 0.038 NT-Pro-B Natriuret Pep 695 H 12/18/19 09:47 CK-MB (CK-2) 2.00 Troponin I 0.028 NT-Pro-B Natriuret Pep Impressions: Chest X-Ray 12/17/19 16:53 IMPRESSION: HEART ENLARGED WITHOUT FAILURE. NO OTHER SIGNIFICANT RADIOGRAPHIC FINDING IN THE CHEST. Plan Health Concerns: Possibly recurrence of fibrillation and possible complications of anticoagulation Plan of Treatment: Now on metoprolol and apixaban. Continue same and follow-up with Dr. Hidalgo. Resume other medications. Goals: Stabilization of atrial fibrillation Time Spent: Greater than 30 Minutes Stroke Is this a Stroke Patient?: No Acute Heart Failure - Is this a Heart Failure Patient?: No
[2019-12-19 12:23] VITALS: BP 170/66
== END 2019-12-19 13:52 | disposition home or self-care (01) ==
LOC: ER 16:50 → EH 20:26 → INTOOBSV 20:26 → 3W 22:04
PROVIDERS: ADMIT Hospitalist; ATTEND Hospitalist
DX: I48.91 Unspecified atrial fibrillation (principal); R06.02 Shortness of breath; I11.9 Hypertensive heart disease without heart failure; E78.5 Hyperlipidemia, unspecified; R05 Cough; R09.81 Nasal congestion; E66.9 Obesity, unspecified; Z66 Do not resuscitate; Z79.82 Long term (current) use of aspirin; Z79.899 Other long term (current) drug therapy
CPT/HCPCS: 93005 ×2; 99291; 99292; 36415 ×2; 82553 ×2; 82550; 83735; 84443; 85025 ×2; 85610; 85730; 80048; 80053; 81001; 84484 ×2; 80061; 83880; 93306; 71045; 93010 ×2; G0378 ×2; J0360; J1650 ×2; J7030; A9270 ×6